=== PATIENT | male | born 1970 | race Two or more races ===

== ENCOUNTER → 2023-02-10 | Emergency (ER) | payer OTHER ==
[~2023-02-10] VITALS: Ht 177.8 cm; Wt 81.6 kg
== END | disposition left against medical advice (07) ==
LOC: ER 08:15
DX: S01.81XA Laceration without foreign body of other part of head, initial encounter (principal); S14.5XXA Injury of cervical sympathetic nerves, initial encounter; W18.39XA Other fall on same level, initial encounter; Y93.89 Activity, other specified; Y92.091 Bathroom in other non-institutional residence as the place of occurrence of the external cause; Y99.8 Other external cause status